=== PATIENT | female | born 1970 | race Caucasian/White ===

== ENCOUNTER 2017-09-10 14:03 | Emergency (ER) | payer OTHER ==
[~2017-09-10] VITALS: Ht 157.5 cm; Wt 70.3 kg
== END 2017-09-10 16:30 | disposition home or self-care (01) ==
LOC: ER 14:03
DX: B34.9 Viral infection, unspecified (principal); J40 Bronchitis, not specified as acute or chronic

== ENCOUNTER 2017-10-18 12:47 | Emergency (ER) | payer OTHER ==
[~2017-10-18] VITALS: Ht 157.5 cm; Wt 70.3 kg
[2017-10-18] MEDS ORDERED: KETO10TA2 PO (15:34)
== END 2017-10-18 16:01 | disposition home or self-care (01) ==
LOC: ER 12:47
DX: N20.0 Calculus of kidney (principal); R10.32 Left lower quadrant pain

== ENCOUNTER → 2018-05-26 | Emergency (ER) | payer OTHER ==
[~2018-05-26] VITALS: Ht 157.5 cm; Wt 68.9 kg
[~2018-05-26] MED LIST: KETO10TA2 PO; PREDNISOLO15 MG/5 M2 PO; PROMETH-CODEIN 65 ML PO; TESSALON PERLE100 M1 PO
== END | disposition home or self-care (01) ==
LOC: ER 20:48
DX: R05 Cough (principal)

== ENCOUNTER 2025-04-27 09:08 | Emergency (ER) | payer OTHER ==
[~2025-04-27] VITALS: Ht 157.5 cm; Wt 70.3 kg
[2025-04-27] MEDS ORDERED: KETOROLAC TROMETHAMINE 30 MG VIAL IM STA (09:26)
[2025-04-27] MEDS ORDERED: ORPHENADRINE CITRATE 30 MG/ML AMPUL IM STA (09:26)
[2025-04-27] MEDS ORDERED: DEXAMETHASONE SODIUM PHOSPHATE 4 MG/ML VIAL IM STA (09:28)
[2025-04-27] MEDS ORDERED: ORPHENADRINE CITRATE 30 MG/ML AMPUL ONE (09:52)
[2025-04-27] MEDS ORDERED: KETOROLAC TROMETHAMINE 30 MG VIAL ONE (09:53)
[2025-04-27] MEDS ORDERED: DEXAMETHASONE SODIUM PHOSPHATE 4 MG/ML VIAL ONE (09:53)
[2025-04-27] MEDS ORDERED: ACETAMINOPHEN 500 MG GEL..CAP PO ONE (09:54)
== END 2025-04-27 10:19 | disposition home or self-care (01) ==
LOC: ER 09:08
DX: M43.6 Torticollis (principal)